=== PATIENT | female | born 1950 | race African-American/Black ===

== ENCOUNTER 2020-09-10 16:26 | Emergency (ER) | payer MEDICARE, OTHER ==
[~2020-09-10] VITALS: Ht 162.6 cm; Wt 90.0 kg
[2020-09-10] MEDS ORDERED: DICYCLOMINE 10 MG/5 ML ORAL SYR PO STA (17:31)
[2020-09-10] MEDS ORDERED: VISCOUS LIDOCAINE 2% 15 ML UDC PO STA (17:31)
[2020-09-10] MEDS ORDERED: MAGNESIUM/ALUMINUM HYDROXIDE/SIMETHICONE 30ML UDC PO STA (17:31)
[2020-09-10] MEDS ORDERED: ONDANSETRON 4MG ODT PO STA (17:31)
[2020-09-10 17:41] LABS: BASOPHILS % 1.4 % (0.0-2.0); LYMPHOCYTES % 34.8 % (20.0-50.0); MEAN CORPUSCULAR HEMOGLOBIN 30.4 pg (28.0-32.0); MEAN CORPUSCULAR VOLUME 88.9 fL (81.0-99.0); MEAN PLATELET VOLUME 7.9 fl (7.4-10.4); MONOCYTES % 9.5 % (2.0-8.0); NEUTROPHILS % 46.3 % (40.0-76.0); PLATELET 300 x1000/uL (130-400); RED BLOOD CELL COUNT 3.94 mill/uL (4.2-5.4)
[2020-09-10 17:44] LABS: CHLORIDE 106 mEq/L (98-107)
[2020-09-10 18:51] LABS: ETHANOL BLOOD < 10 mg/dL
[2020-09-10 19:03] LABS: PROTHROMBIN TIME 11.2 sec (9.6-11.0)
[2020-09-10] MEDS ORDERED: ASPIRIN 81MG TABLET PO ONE (19:30)
[2020-09-10 21:30] VITALS: BP 163/87
[2020-09-10] MEDS ORDERED: MAG355OR21 MT (22:54)
== END 2020-09-10 23:32 | disposition left against medical advice (07) ==
LOC: ER 16:26 → CANBEDREQ 20:33 → ER 23:32
DX: R07.89 Other chest pain (principal); R10.13 Epigastric pain; E11.9 Type 2 diabetes mellitus without complications; I10 Essential (primary) hypertension; Z88.6 Allergy status to analgesic agent; Z88.5 Allergy status to narcotic agent; Z98.890 Other specified postprocedural states
CPT/HCPCS: 36415; 71045; 80053; 80320; 83605; 83690; 83880; 84484; 85025; 85610; 93005; 99285; Q0162; G0480

== ENCOUNTER 2021-08-13 05:40 | Emergency (ER) | payer MEDICARE, MEDICAID ==
[~2021-08-13] VITALS: Ht 167.6 cm; Wt 103.0 kg
[~2021-08-13 05:40] MED LIST: MAG355OR21 MT
[2021-08-13] MEDS ORDERED: LIDOCAINE 5% PATCH TOP STA (07:02)
[2021-08-13] MEDS ORDERED: ACETAMINOPHEN 325MG TABLET PO ONE (07:15)
[2021-08-13] MEDS ORDERED: LIDO700A30 TP (13:23)
[2021-08-13 13:44] VITALS: BP 148/74
== END 2021-08-13 13:46 | disposition home or self-care (01) ==
LOC: ER 06:03
DX: M19.09 Primary osteoarthritis, other specified site (principal); M54.50 Low back pain, unspecified; G89.29 Other chronic pain; E11.9 Type 2 diabetes mellitus without complications; I10 Essential (primary) hypertension; E66.01 Morbid (severe) obesity due to excess calories; Z68.36 Body mass index [BMI] 36.0-36.9, adult
CPT/HCPCS: 72110; 99283